=== PATIENT | female | born 1945 | race Caucasian/White ===

== ENCOUNTER 2022-02-28 09:54 | Emergency (ER) | payer OTHER, MEDICARE ==
[2022-02-28 10:12] VITALS: BP 169/71; PULSE 62; RESP 18; TEMP 97.5
[2022-02-28] MEDS ORDERED: LIDOCAINE 1% INJ 10MG/ML (30 ML VIAL-PF) SQ ONE (10:18)
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
[2022-02-28] MEDS ORDERED: LIDOCAINE 5% PATCH TOPICAL SCH (11:00)
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
== END 2022-02-28 12:56 | disposition home or self-care (01) ==
LOC: EC 09:54
DX: S61.412A Laceration without foreign body of left hand, initial encounter (principal); I10 Essential (primary) hypertension; Z88.0 Allergy status to penicillin; Z88.8 Allergy status to other drugs, medicaments and biological substances; Z90.710 Acquired absence of both cervix and uterus; Z90.49 Acquired absence of other specified parts of digestive tract; Z87.891 Personal history of nicotine dependence; V43.52XA Car driver injured in collision with other type car in traffic accident, initial encounter; Y92.488 Other paved roadways as the place of occurrence of the external cause
CPT/HCPCS: 73130; 72125; 70450; 12002; 99285; J2001